=== PATIENT | male | born 1960 | race Caucasian/White ===

== ENCOUNTER 2017-08-14 02:11 | Inpatient (IN) | payer BC ==
[2017-08-13 16:00] LABS: INR 0.93
[2017-08-14] VITALS (16 sets, daily range): BP systolic 104–134; BP diastolic 60–84
[~2017-08-14] VITALS: Ht 172.7 cm; Wt 115.9 kg
[~2017-08-14 02:11] MED LIST: CLON-303 PO; SERT-184 PO; SIMV-49 PO; TRANEXAMIC AC 1000 MG/10ML SDV 1,000 MG in DEXTROSE 5% 50 ML BAG 50 ML IV ONE
[2017-08-14] MEDS: NORMOSOL R SOLN(*) 1000 ML BAG 1,000 ML IV PRN ×2 (05:34→10:06)
[2017-08-14] MEDS ORDERED: TRANEXAMIC AC 1000 MG/10ML SDV 1,000 MG in DEXTROSE 5% 50 ML BAG 50 ML IV ONE (06:00)
[2017-08-14] MEDS ORDERED: MIDAZOLAM 2 MG/2 ML VIAL IVP PRN (06:00)
[2017-08-14] MEDS ORDERED: ceFAZolin(*) 2GM/D5W 50ML 50 ML IVPB ONE (06:00)
[2017-08-14] MEDS ORDERED: FAMOTIDINE 20 MG TAB PO ONE (06:00)
[2017-08-14] MEDS ORDERED: cloNIDine EPIDUR INJ 100MCG/ML 40 MCG, ROPIVACAINE 0.5% 20 ML VIAL 25 ML, EPINEPHrine H... INJ ONE (06:00)
[2017-08-14] MEDS ORDERED: LIDOCAINE/SOD BICARB 8.4% SYR ID ONE (06:00)
[2017-08-14] MEDS ORDERED: BACITRACIN 50000 UNIT/VIAL 100,000 UNIT in NS 0.9% 3000 ML IRRIGATION BAG 3,000 ML IR ONE (06:00)
[2017-08-14] MEDS ORDERED: fentaNYL CITR 100 MCG/2 ML AMP ONE ×2 (06:44→08:24)
[2017-08-14] MEDS ORDERED: LIDOCAINE 2% IV 100 MG/5ML SYR ONE (06:45)
[2017-08-14] MEDS ORDERED: PROPOFOL EMUL(*) 10MG/ML 20 ML 20 ML ONE (06:46)
[2017-08-14] MEDS ORDERED: EPINEPHrine HCL 30 MG/30 ML ONE (07:00)
[2017-08-14] MEDS ORDERED: DEXAMETHASONE SOD 4 MG/ML VIAL ONE ×2 (07:16→10:48)
[2017-08-14] MEDS ORDERED: ONDANSETRON 4 MG/2 ML VIAL ONE ×2 (07:17→10:49)
--- NOTE | 2017-08-14 08:57 | RADIOLOGY IMAGING REPORT ---
[place] [facility] [place] NAME: James Yuan : 1960 MR: [id number] V: [id number] EXAM DATE: ORDERING PHYSICIAN: СВЕТЛАНА MORIN TECHNOLOGIST: Location: [facility] Patient: James Yuan : 1960 Visit/Account:[id number] Date of Sevice: 08/14/2017 Technique: HIP IN OR LEFT HISTORY: LEFT TOTAL HIP ARTHROPLASTY Comparison studies: None FINDINGS: Present is an incompletely visualized left hip arthroplasty. There is gross anatomic align ment. No acute fracture is identified. IMPRESSION: 1. Left hip arthroplasty without evidence of hardware complication. Report Dictated By: Pieter Ayon DO at 08/14/2017 8:52 AM Report E-Signed By: Pieter Ayon DO at 08/14/2017 8:53 AM WSN:[id number]
[2017-08-14] MEDS ORDERED: diphenhydrAMINE 25 MG CAP PO PRN (09:15)
[2017-08-14] MEDS ORDERED: FLUSH 10 ML SYR IVP PRN (09:15)
[2017-08-14] MEDS ORDERED: ZOLPIDEM TARTRATE 5 MG TAB PO PRN (09:15)
[2017-08-14] MEDS ORDERED: MAGNESIUM CITRATE 300 ML BTL PO PRN (09:15)
[2017-08-14] MEDS ORDERED: BISACODYL 10 MG SUPP PR PRN (09:15)
[2017-08-14] MEDS ORDERED: ONDANSETRON 4 MG/2 ML VIAL IVP PRN (09:15)
[2017-08-14] MEDS ORDERED: PROMETHAZINE HCL(*) 25 MG SUPP PR PRN (09:15)
[2017-08-14] MEDS ORDERED: LR 1000 ML BAG 1000 ML IV PRN (09:15)
[2017-08-14] MEDS ORDERED: diphenhydrAMINE 50 MG/ML VIAL IVP PRN (09:15)
[2017-08-14] MEDS ORDERED: MAGNESIUM HYDROXIDE* 30ML UDCP PO PRN (09:15)
--- NOTE | 2017-08-14 10:05 | RADIOLOGY IMAGING REPORT ---
FACILITY: [facility] PATIENT NAME: James Yuan : 1960 MR: [id number] V: [id number] EXAM DATE: ORDERING PHYSICIAN: СВЕТЛАНА MORIN TECHNOLOGIST: [facility] Patient: James Yuan : 1960 Visit/Account:[id number] Date of Sevice: 08/14/2017 Technique: PELVIS HISTORY: CONFIRM PLACEMENT Comparison studies: None FINDINGS: Present is a left hip arthroplasty. There is gross anatomic alignment. No periprosthetic fracture. IMPRESSION: 1. Left hip arthroplasty with gross anatomic alignment. Report Dictated By: Pieter Ayon DO at 08/14/2017 10:00 AM Report E-Signed By: Pieter Ayon DO at 08/14/2017 10:02 AM WSN:[id number]
--- NOTE | 2017-08-14 10:16 | OPERATIVE REPORT 1 ---
EVENT DATE: August 14, 2017 SURGEON: Tray Crane MA ANESTHESIOLOGIST: Corwin Cabrera MD ANESTHESIA: Spinal plus general. EDGE STRIPPER: Amrit Mancini PA-C PREOPERATIVE DIAGNOSIS Left hip osteoarthritis. POSTOPERATIVE DIAGNOSIS Left hip osteoarthritis. PROCEDURE Left total hip arthroplasty. FINDINGS The patient had an arthritic hip, which was amenable for a total hip arthroplasty. ESTIMATED BLOOD LOSS About 300 mL. DRAINS None. COMPLICATIONS None. TOURNIQUET TIME Not applicable. IMPLANTS Leonel size 58 mm Trabecular Metal acetabular shell with a neutral liner for a 40 mm head, a 10 standard stem and a 40/-3.5 head and dome hole plugs and screw hole plugs for the acetabulum. SPECIMENS None. INDICATIONS AND HISTORY This patient is a 57-year-old male who presented to my clinic for evaluation of left hip pain and irritation going on for some time. He continued to have pain and irritation despite conservative management, so he wanted to go ahead with a total hip arthroplasty today, August 14, 2017. The risks and benefits were discussed with the patient, and informed consent was obtained at the last clinic visit. We talked about the implications of a total hip arthroplasty at a young age and needing a revision, and also the implications associated with bone loss and dislocation, and also nerve injuries associated with it as well as other complications associated with surgery. After discussion of those risks and benefits, informed consent was obtained at the last clinic visit. DESCRIPTION OF PROCEDURE The patient was brought into the operating room. He and the procedure were both verified. He was placed supine on the operative table and induced and intubated by Anesthesia after being given a spinal, and then he was turned in the lateral decubitus position with the left hip towards the ceiling, and then the left hip was prepped and draped in the usual fashion and time out was observed, verifying the correct patient and procedure. The standard incision was made over the posterolateral aspect of the hip. It was taken through the skin and subcutaneous tissue until I got down to the gluteal musculature. Once I was able to cut through the gluteal musculature, I was also able to cut through a small portion of the IT band in order to gain access to the posterior aspect of the hip. Once I gained access to the posterior aspect of the hip, I was able to identify the piriformis and was able to cut the pyriformis without any difficulty and tag it for later repair. I then cut the leading edge of the short external rotators, and then I put a T incision within the capsule itself and then was able to dislocate the hip without much difficulty. Once I was able to dislocate the hip, I was then able to cut the head off the hip without any major issues using a sagittal saw in the standard plane for the Leonel system for the ML taper stem. I was then able to gain access to the acetabulum and put an anterior retractor as well as an inferior retractor, and then a superior retractor in order to gain access 360 degrees around the entire acetabulum, and then was able to expose it and cut off the labrum on the inside and tag the capsule for later repair. I then started with a 51 mm reamer and reamed subsequently up to a 57, which had a good acetabular rim fill and good cancellous bleeding bone within the acetabulum itself, and so therefore the 58 mm acetabular Trabecular Metal cluster hole shell was chosen. This was placed in the acetabulum without any difficulty and was teased down to the bottom of the dome hole, and screw hole plugs were placed without any major issues. After irrigating with copious amounts of saline, I then put in the liner and then turned attention back to the femur. Once I was back on the femur, I was able to use the box cutting osteotome followed by the canal finding reamer, and then a lateralizing reamer. This was then followed by broach, from a [address] up to a 10 broach, which seated in well, and so calcar planer was then utilized, and then the standard head and neck were placed on the stem. The hip was relocated, put through a range of motion, and then an x-ray was taken. The x-ray showed that the hip was a little bit longer, and it was a little bit tighter, so therefore we then trialed a -3.5. This looked significantly better on both length and tension, and so therefore this was the final components chosen. After removal of the trials, I then put in the standard 10 stem with the standard angle. This was then followed by a -3.5/40 ceramic head, which was placed into the stem. This was then relocated, put through a range of motion and showed no signs of instability or issues associated with tightness, and so therefore the capsule was then closed with Ethibond. This was then followed by Ethibond closure of the pyriformis through drill holes in the posterior aspect of the femur, and then closure of the gluteal musculature as well as the IT band with a #2 Stratafix. This was then followed by 2-0 Vicryl in the subcutaneous tissue and a subcuticular 2-0 Stratafix followed by 4-0 Monocryl in a subcuticular running stitch with the ends outside. The cocktail was infused prior to closure, and then the wound was dressed with Steri-Strips, gauze 4x4s and a soft dressing, and the patient was awakened and extubated and transferred to PACU in stable condition. KACEY
[2017-08-14] MEDS ORDERED: clonazePAM 0.5 MG TAB PO PRN (13:10)
--- NOTE | 2017-08-14 13:14 | Hospitalist Progress Note ---
Subjective Progress Notes Subjective No cp/sob. EBL 100cc. 1400cc of crystalloid, epinephrine, TXA and dexamethasone given intra-op. Lowest intra-op SBP was 75. Physical Exam Vital Signs Date Time Temp Pulse Resp B/P (MAP) Pulse Ox O2 Delivery O2 Flow Rate FiO2 08/14/17 11:44 85 08/14/17 10:54 Room Air 3.0 08/14/17 10:54 98.0 58 12 104/65 (78) Intake and Output 08/15/17 07:00 Intake Total 3350 ml Output Total 200 ml Balance 3150 ml Intake Oral 1250 ml IV Total 2100 ml Output Urine Total 100 ml Estimated Blood Loss 100 ml General Appearance: Alert, Awake, No Acute Distress Cardiovascular: Regular Rate and Rhythm Respiratory: Clear to Auscultation Extremities: No Edema Assessment and Plan Problems: (1) Status post hip replacement Status: Acute Assessment & Plan: No CV/pulmonary issues. The patient denies any DVT/PE history. He will be on ASA 325mg a day for 30 days after surgery for blood clot prevention. (2) Depression Status: Chronic Assessment & Plan: Continue chronic Zoloft and Clonazepam prn. (3) Fatty liver Status: Chronic Assessment & Plan: Continue chronic Simvastatin. Exam Sepsis Risk: No Definite Risk Problem Qualifiers (1) Status post hip replacement: Laterality: left Qualified Codes: Z96.642 - Presence of left artificial hip joint TATIANA DE ANDA MD Aug 14, 2017 13:14
[2017-08-14] MEDS: ceFAZolin(*) 2GM/D5W 50ML 50 ML IVPB SCH ×2 (14:59→23:29)
[2017-08-14] MEDS: HYDROmorphone HCL 2 MG/ML SDV IVP PRN ×2 (15:00→21:23)
[2017-08-14] MEDS ORDERED: PROMETHAZINE 25 MG/ML 1 ML AMP IVP PRN (15:20)
[2017-08-14] MEDS ORDERED: SERTRALINE HCL 50 MG TAB PO SCH (21:00)
[2017-08-14] MEDS ORDERED: SIMVASTATIN 20 MG TAB PO SCH (21:00)
[2017-08-14] MEDS ORDERED: ASPIRIN 325 MG TAB PO SCH (21:00)
[2017-08-15] MEDS: HYDROmorphone HCL 2 MG/ML SDV IVP PRN ×2 (02:00→05:15)
[2017-08-15 03:55] VITALS: BP 114/67
[2017-08-15] MEDS: ceFAZolin(*) 2GM/D5W 50ML 50 ML IVPB SCH (06:53)
[2017-08-15] MEDS ORDERED: OXYC-865 PO (07:05)
[2017-08-15 07:22] VITALS: BP 101/66
[2017-08-15] MEDS ORDERED: ASPI-757 PO (08:16)
--- NOTE | 2017-08-15 08:41 | Hospitalist Progress Note ---
Subjective Progress Notes Subjective Patient is hoping to be discharged today. He had no acute events overnight. Patient Complains of: Cardiovascular: No: Chest Pain Respiratory: No: Shortness of Breath Physical Exam Vital Signs Date Time Temp Pulse Resp B/P (MAP) Pulse Ox O2 Delivery O2 Flow Rate FiO2 08/15/17 07:28 90 Nasal Cannula 1.0 08/15/17 07:22 97.9 56 18 101/66 (78) Intake and Output 08/16/17 07:00 Intake Total 50 ml Balance 50 ml IV Total 50 ml General Appearance: Alert, Awake, No Acute Distress, Afebrile Respiratory: No Respiratory Distress, Clear to Auscultation Psych: Appropriate Mood & Affect Result Diagram: 08/15/17 6549 Assessment and Plan Problems: (1) Status post hip replacement Status: Acute Assessment & Plan: No CV/pulmonary issues. The patient denies any DVT/PE history. He will be on ASA 325mg a day for 30 days after surgery for blood clot prevention. (2) Depression Status: Chronic Assessment & Plan: Continue chronic Zoloft and Clonazepam prn. (3) Fatty liver Status: Chronic Assessment & Plan: Continue chronic Simvastatin. Exam Sepsis Risk: No Definite Risk Problem Qualifiers (1) Status post hip replacement: Laterality: left Qualified Codes: Z96.642 - Presence of left artificial hip joint TATIANA DE ANDA MD Aug 15, 2017 08:41
== END 2017-08-15 11:40 | disposition home or self-care (01) | DRG 470 ==
LOC: OR 02:11 → MED 10:35
PROVIDERS: ADMIT Orthopaedic Surgery; ATTEND Orthopaedic Surgery
PROC: 5A09357 Assistance with Respiratory Ventilation, Less than 24 Consecutive Hours, Continuous Positive Airway Pressure (ICD-10-PCS; 2017-08-14)
PROC: 0SRB02A Replacement of Left Hip Joint with Metal on Polyethylene Synthetic Substitute, Uncemented, Open Approach (ICD-10-PCS; principal; 2017-08-14 06:56)
DX: M16.12 Unilateral primary osteoarthritis, left hip (principal); G47.33 Obstructive sleep apnea (adult) (pediatric); F17.210 Nicotine dependence, cigarettes, uncomplicated; K76.0 Fatty (change of) liver, not elsewhere classified; E66.9 Obesity, unspecified; F32.9 Major depressive disorder, single episode, unspecified; Z68.38 Body mass index [BMI] 38.0-38.9, adult; Z85.828 Personal history of other malignant neoplasm of skin
CPT/HCPCS: 36415; 72170; 85014; 85018; 85610; 86850; 86900; 86901; 97161; 97165; C1713; C1776; J0171; J0690; J0735; J1100; J1170; J1885; J2001; J2250; J2405; J2704; J2795; J3010; J7050; J7060